=== PATIENT | female | born 1990 | race Hispanic/Latino ===

== ENCOUNTER 2022-08-08 10:20 | Day surgery (SDC) | payer MEDICAID ==
[2022-08-05 13:14] LABS: BASOPHILS % (AUTO) 0.3 % (0.0-5.0); HEMATOCRIT 39.1 % (36-48); LYMPHOCYTES % (AUTO) 39.9 % (21.0-51.0); MEAN CORPUSCULAR HEMOGLOBIN 28.3 pg (27.0-33.0); MEAN CORPUSCULAR HGB CONC 33.2 g/dL (32.0-36.0); MONOCYTES % (AUTO) 4.7 % (3.0-13.0); NEUTROPHILS % (AUTO) 53.7 % (40.0-77.0); PLATELET COUNT (AUTO) 263 K/uL (130-400); WHITE BLOOD COUNT (AUTO) 10.2 K/uL (4.8-10.8)
[2022-08-05 14:12] VITALS: BP 103/68
[~2022-08-08] VITALS: Ht 157.5 cm; Wt 99.6 kg
[2022-08-08] VITALS (17 sets, daily range): BP systolic 105–138; BP diastolic 61–90
[~2022-08-08 10:20] MED LIST: AMOX1TAB16 PO; PREN-154 PO
[2022-08-08] MEDS ORDERED: CEFAZOLIN SODIUM 2 GM VIAL ONE (10:30)
[2022-08-08] MEDS ORDERED: 0.9%NACL 1000ML 1,000 ML IV ONE (10:30)
[2022-08-08] MEDS ORDERED: SUCCINYLCHOLINE CHLORIDE 20 MG/ML 10 ML VIAL ONE (10:37)
[2022-08-08] MEDS ORDERED: NEOSTIGMINE 5MG/5ML SYR IV ONE (10:37)
[2022-08-08] MEDS ORDERED: MIDAZOLAM HCL 1 MG/ML 2ML VIAL ONE (10:37)
[2022-08-08] MEDS ORDERED: LIDOCAINE PF 100MG/5ML (2%) SYRINGE 5ML ONE (10:37)
[2022-08-08] MEDS ORDERED: ONDANSETRON 4MG INJ ONE ×2 (10:37→13:46)
[2022-08-08] MEDS ORDERED: DEXAMETHASONE SOD PHOSPHATE 10MG/ML 1ML VIAL ONE (10:37)
[2022-08-08] MEDS ORDERED: PROPOFOL 10 MG/ML 20ML VIAL IV ONE (10:37)
[2022-08-08] MEDS ORDERED: GLYCOPYRROLATE 1 MG/5 ML SYRINGE ONE (10:37)
[2022-08-08] MEDS ORDERED: ROCURONIUM 10MG/1ML SYR 10 MG/ML ML ONE (10:38)
[2022-08-08] MEDS ORDERED: FENTANYL CITRATE PF 50 MCG/1 ML 2ML VIAL ONE (10:38)
[2022-08-08] MEDS ORDERED: BUPIVACAINE/PF 0.25% 30ML VIAL IJ ONE (12:22)
[2022-08-08] MEDS ORDERED: EPHEDRINE SULFATE 50 MG/ML AMPULE ONE (13:03)
[2022-08-08] MEDS ORDERED: BACITRACIN 28.4 GM OINT TP ONE (13:11)
[2022-08-08] MEDS ORDERED: MEPERIDINE-PF 25 MG/ML SYG ONE (13:47)
== END 2022-08-08 15:10 | disposition home or self-care (01) ==
LOC: DAH 10:20
PROVIDERS: ATTEND Surgery
DX: L73.2 Hidradenitis suppurativa (principal); Z20.822 Contact with and (suspected) exposure to COVID-19; E66.01 Morbid (severe) obesity due to excess calories; Z98.891 History of uterine scar from previous surgery; Z98.890 Other specified postprocedural states; Z68.41 Body mass index [BMI] 40.0-44.9, adult; Z79.899 Other long term (current) drug therapy
CPT/HCPCS: 87426; 36415; 85025; 84703; 11450; A6260; A4663; J7030 ×2; J3010; J3490 ×4; J1100; J2710; J0330; J2250; J2405 ×2; J2175; J0690; A4215; A4223; A4222; A4221; S0020; J2001; J2704

== ENCOUNTER 2023-10-10 09:21 | Emergency (ER) | payer MEDICAID, OTHER ==
[~2023-10-10] VITALS: Ht 157.5 cm; Wt 96.2 kg
[2023-10-10] MEDS: LOPERAMIDE 1 MG/7.5 ML UDCUP PO SCH (10:17)
[2023-10-10] MEDS: PANTOPRAZOLE 40 MG TAB DR PO ONE (10:18)
[2023-10-10] MEDS: ONDANSETRON 4MG TABLET PO ONE (10:18)
[2023-10-10 10:35] LABS: BASOPHILS # (AUTO) 0.02 K/uL (0.00-0.20); BASOPHILS % (AUTO) 0.2 % (0.0-5.0); HEMATOCRIT 39.3 % (36-48); IMMATURE GRANULOCYTE ABSOLUTE 0.03 K/uL (0-1); LYMPHOCYTES # (AUTO) 4.3 K/uL (1.0-4.8); LYMPHOCYTES % (AUTO) 42.6 % (21.0-51.0); MEAN CORPUSCULAR HGB CONC 33.8 g/dL (32.0-36.0); MEAN CORPUSCULAR VOLUME 88.5 fL (79-99); MONOCYTES # (AUTO) 0.5 K/uL (0.1-1.0); MONOCYTES % (AUTO) 4.6 % (3.0-13.0); NEUTROPHILS # (AUTO) 5.1 K/uL (1.8-7.7); NEUTROPHILS % (AUTO) 51.3 % (40.0-77.0); PLATELET COUNT (AUTO) 272 K/uL (130-400); RED BLOOD CELL COUNT(AUTO) 4.44 MIL/uL (4.00-5.50); RED CELL DISTRIBUTION WIDTH 13.4 % (11.0-15.5)
[2023-10-10 10:46] LABS: CREATININE 0.6 mg/dL (0.5-1.0); POTASSIUM 3.8 mmol/L (3.5-5.1)
[2023-10-10 10:50] LABS: APPEARANCE,URINE TURBID (CLEAR); BILIRUBIN,URINE SMALL mg/dL (NEGATIVE); COLOR,URINE RED (YELLOW); GLUCOSE, URINE (UA) NEGATIVE (NEGATIVE); KETONES,URINE NEGATIVE (NEGATIVE); LEUKOCYTE ESTERASE ,URINE NEGATIVE Leu/uL (NEGATIVE); NITRATE,URINE POSITIVE (NEGATIVE); OCCULT BLOOD,URINE MODERATE (NEGATIVE); PROTEIN,URINE 100 mg/dL (NEGATIVE); UROBILINOGEN,URINE 0.2 mg/dL (0.2-1.0)
[2023-10-10 10:50] LABS: ALBUMIN 3.7 g/dL (3.5-5.0); BILIRUBIN,TOTAL 0.3 mg/dL (0.2-1.0); TOTAL PROTEIN, SERUM 7.4 g/dL (6.0-8.3)
[2023-10-10 11:50] LABS: ADD UA MICROSCOPIC YES
[2023-10-10 12:04] LABS: RBC,URINE TNTC /HPF (0-1); SQUAMOUS EPITHELIAL CELL,UR Rare /HPF (0-2); WBC,URINE 0-1 /HPF (0-1)
[2023-10-10 12:05] LABS: BACTERIA,URINE Few /HPF (None Seen)
[2023-10-10] MEDS: cefTRIAXone 1G VIAL IM ONE (12:20)
[2023-10-10] MEDS ORDERED: CEPH500B PO (12:30)
[2023-10-10] MEDS ORDERED: cefTRIAXone 1G VIAL IVPB ONE (12:30)
[2023-10-10] MEDS ORDERED: KETO10 PO (12:37)
[2023-10-10 12:59] VITALS: BP 133/80; PULSE 74; RESP 14; O2SAT 99
== END 2023-10-10 13:03 | disposition home or self-care (01) ==
LOC: EDH 09:21
DX: N39.0 Urinary tract infection, site not specified (principal); K52.9 Noninfective gastroenteritis and colitis, unspecified; F32.A Depression, unspecified; F41.9 Anxiety disorder, unspecified; Z79.899 Other long term (current) drug therapy; Z88.1 Allergy status to other antibiotic agents; Z91.040 Latex allergy status; Z98.890 Other specified postprocedural states
CPT/HCPCS: 99284; 82550; 80053; 83690; 85025; 87086 ×2; 87186; 81001; 81025; 36415; 96372; Q0162; J0696

== ENCOUNTER 2023-11-15 06:10 | Day surgery (SDC) | payer OTHER ==
[~2023-11-15] VITALS: Ht 157.5 cm; Wt 99.8 kg
[2023-11-15] VITALS (9 sets, daily range): BP systolic 113–129; BP diastolic 63–77; PULSE 71–91; RESP 15–18; TEMP 97.4–99.7
[~2023-11-15 06:10] MED LIST changes: -AMOX1TAB16 PO; +FLUO20CA30 PO; +MULT-1367 PO; -PREN-154 PO
[2023-11-15] MEDS: 0.9%NACL 1000ML 1,000 ML IV ONE (06:43)
[2023-11-15] MEDS ORDERED: proPOFol 10 MG/ML 20ML VIAL IV ONE ×2 (07:09→07:11)
== END 2023-11-15 08:25 | disposition home or self-care (01) ==
LOC: ENDO 06:10
PROVIDERS: ATTEND Internal Medicine Gastroenterology
DX: R19.7 Diarrhea, unspecified (principal); R10.30 Lower abdominal pain, unspecified; F41.9 Anxiety disorder, unspecified; F32.A Depression, unspecified; Z88.1 Allergy status to other antibiotic agents; Z91.040 Latex allergy status; Z79.899 Other long term (current) drug therapy
CPT/HCPCS: 84703; 36415; 45380; J7030 ×2; J2704 ×2; A4620; A4215 ×2; A4223; A4657; A4222; A4221; A4663; A4606; J3490